=== PATIENT | male | born 1990 | race Caucasian/White ===

== ENCOUNTER 2016-06-27 15:59 | Emergency (ER) | payer OTHER ==
[2016-06-27 16:07] VITALS: PULSE 72; O2SAT 98
[2016-06-27 16:18] VITALS: BP 135/85
--- NOTE | 2016-06-27 16:26 | ERPHSYRPT ---
- History of Present Illness Time Seen by Provider: 06/27/16 16:17 Source: patient Exam Limitations: no limitations Patient Subjective Stated Complaint: PT COMPLAINS OF LEFT SIDE UPPER TOOTH PAIN, EAR PAIN. X 3 DAYS STATES HE HAS CALLED A DENTIST AND CAN'T GET IN FOR 11 DAYS. Triage Nursing Assessment: PT ALERT WARM AND DRY RESP EASY NON LABORED PT AMBULATED TO ROOM WITHOUT DIFFICULTY. Physician History: 25-year-old white male arrives with complaint of pain in the left maxillary molar region symptoms for 3 days. Patient states he also has left ear pain he has no vomiting no diarrhea no fevers. He states he tried to contact a dentist but cannot get in until the of this month. Past medical history is negative. Past surgical history is negative Social history positive for tobacco use Timing/Duration: abrupt onset, days (3 days) ENT Location: ear (L), mouth Prearrival Treatment: no prearrival treatment Modifying Factors: Improves With: activity Associated Symptoms: ear pain (L), facial pain/swelling, jaw pain, tooth pain ( left maxillary molar), No ear pain (R), No cough, No fever, No chills, No change in hearing, No dizziness, No drooling, No ear drainage, No headache, No hearing loss, No malaise, No motion sickness, No nasal congestion/drainage, No epistaxis, No nasal foreign body, No neck pain, No poor fluid intake, No poor solids intake, No ringing of ears, No swollen glands, No sinus infection, No sore throat, No difficulty swallowing, No voice change Allergies/Adverse Reactions: No Known Drug Allergies Allergy (Verified 08/26/15 23:42) Hx Tetanus, Diphtheria Vaccination/Date Given: Yes Hx Influenza Vaccination/Date Given: No Hx Pneumococcal Vaccination/Date Given: No Immunizations Up to Date: Yes - Review of Systems Constitutional: No Fever, No Chills Eyes: No Symptoms Ears, Nose, & Throat: Ear Pain (left ear pain), Other (pain left maxillary molar ), No Ear Discharge, No Hearing Changes, No Tinnitus, No Nose Pain, No Nose Congestion, No Nose Discharge, No Sinus Drainage, No Epistaxis, No Mouth Pain, No Mouth Swelling, No Loose Teeth, No Throat Pain, No Throat Swelling, No Hoarse , No Painful Swallowing, No Snoring, No Stridor Respiratory: No Cough, No Dyspnea Cardiac: No Chest Pain, No Edema, No Syncope Abdominal/Gastrointestinal: No Abdominal Pain, No Nausea, No Vomiting, No Diarrhea Genitourinary Symptoms: No Dysuria Musculoskeletal: No Back Pain, No Neck Pain Skin: No Rash Neurological: No Dizziness, No Focal Weakness, No Sensory Changes Psychological: No Symptoms Endocrine: No Symptoms All Other Systems: Reviewed and Negative - Past Medical History Pertinent Past Medical History: No Psycho-Social History: Depression - Past Surgical History Past Surgical History: No - Social History Smoking Status: Current every day smoker How long have you smoked: 15 YEARS Exposure to second hand smoke: Yes Drug Use: none Patient Lives Alone: No - Nursing Vital Signs Nursing Vital Signs: Initial Vital Signs Temperature 98.9 F Temperature Source Oral Pulse Rate 72 Respiratory Rate 18 Blood Pressure [Right Arm] 135/85 Pain Intensity 10 - Physical Exam General Appearance: mild distress Eye Exam: bilateral eye: normal inspection, PERRL, EOMI Ear Exam: bilateral ear: auricle normal, canal normal, TM normal Nasal Exam: normal inspection, No active bleeding, No discharge, No dried blood , No foreign body, No sinus tenderness Throat Exam: pharynx normal, dental tenderness (tender left maxillary molar), No excessive drooling, No foreign body, No mandibular swelling, No maxillary swelling, No moist mucus membranes, No pharynx swelling, No pharynx tenderness, No tongue swollen, No tonsillar exudate, No tonsillar swelling, No trismus, No uvula swelling Neck Exam: supple Cardiovascular/Respiratory Exam: normal breath sounds, regular rate/rhythm Abdominal Exam: non-tender, soft Neurologic Exam: alert, oriented x 3, sensation nml, No motor deficits Skin Exam: normal color, warm, dry SpO2 Interpretation: normal (98%) SpO2: 98 Oxygen Delivery: Room Air - Course Nursing assessment & vital signs reviewed: Yes - Progress Progress: improved Progress Note: 06/27/16 16:23 25-year-old white male arrives with complaint of pain in the left maxillary molar symptoms for 3 days the pain radiates to his left ear. Patient is tender on the lateral aspect of the face with mild edema corresponding to the left maxillary molar. I do not see obvious caries in the tooth however he is quite tender in the area. Will go ahead and write for [place] and amoxicillin. Patient will need to follow-up with a dentist. - Departure Time of Disposition: 16:24 Departure Disposition: Home Clinical Impression: Pain, dental Condition: Fair Critical Care Time: No Referrals: RODERICK ALONZO [Primary Care Provider] - Instructions: Tooth Decay Additional Instructions: Return home. Cold packs to area 24-48 hours (external only) Avoid excessively hot or cold foods. Amoxicillin 500 mg orally 3 times a day for 10 days. [place] 5/325 #12 one orally every 4-6 hours as needed for pain. Follow-up with your dentist. Return for acute distress or for severe symptoms. Prescriptions: Amoxicillin 500 mg PO TID #30 capsule Hydrocodone/Acetaminophen [[place] 5-325 Tablet] 1 tab PO Q4-6HPRN PRN #12 tablet PRN Reason: Pain
== END 2016-06-27 16:37 | disposition home or self-care (01) ==
LOC: ED 15:59
DX: K08.89 Other specified disorders of teeth and supporting structures (principal); H92.02 Otalgia, left ear
CPT/HCPCS: 99283

== ENCOUNTER 2018-05-26 15:42 | Emergency (ER) | payer MEDICAID, OTHER ==
--- NOTE | 2018-05-26 16:09 | ERPHSYRPT ---
- History of Present Illness Time Seen by Provider: 05/26/18 16:00 Source: patient, family Exam Limitations: no limitations Physician History: 27 y/o white male lifted a shed in his yard 3 days ago and felt a pop and mild pain in right hip. pt was play wrestling last night and aggravated pain in right hip. pt could not get out of bed this morning. pt can move it but hurts. Timing/Duration: day(s) (3) Severity: moderate Modifying Factors: Improves With: movement (worsens), rest (improves) Associated Symptoms: denies symptoms Allergies/Adverse Reactions: No Known Drug Allergies Allergy (Verified 08/26/15 23:42) Hx Tetanus, Diphtheria Vaccination/Date Given: Yes Hx Influenza Vaccination/Date Given: No Hx Pneumococcal Vaccination/Date Given: No - Review of Systems Constitutional: No Symptoms Eyes: No Symptoms Ears, Nose, & Throat: No Symptoms Respiratory: No Symptoms Cardiac: No Symptoms Abdominal/Gastrointestinal: No Symptoms Genitourinary Symptoms: No Symptoms Musculoskeletal: Joint Pain (right hip) Skin: No Symptoms Neurological: No Symptoms Psychological: No Symptoms Endocrine: No Symptoms Hematologic/Lymphatic: No Symptoms Immunological/Allergic: No Symptoms All Other Systems: Reviewed and Negative - Past Medical History Pertinent Past Medical History: No Neurological History: No Pertinent History ENT History: No Pertinent History Cardiac History: No Pertinent History Respiratory History: No Pertinent History Endocrine Medical History: No Pertinent History Musculoskeletal History: No Pertinent History GI Medical History: No Pertinent History History: No Pertinent History Psycho-Social History: Depression - Past Surgical History Past Surgical History: No Neuro Surgical History: No Pertinent History Cardiac: No Pertinent History Respiratory: No Pertinent History Gastrointestinal: No Pertinent History Genitourinary: No Pertinent History Musculoskeletal: No Pertinent History Male Surgical History: No Pertinent History - Social History Smoking Status: Current every day smoker How long have you smoked: 15 YEARS Exposure to second hand smoke: Yes Drug Use: none Patient Lives Alone: No - Nursing Vital Signs Nursing Vital Signs: Initial Vital Signs Temperature 98.3 F 05/26/18 16:03 Pulse Rate 71 05/26/18 16:03 Respiratory Rate 20 05/26/18 16:03 Blood Pressure 154/91 05/26/18 16:03 O2 Sat by Pulse Oximetry 100 05/26/18 16:03 Pain Scale Pain Intensity 9 - Physical Exam General Appearance: no apparent distress, alert, anxiety Eye Exam: PERRL/EOMI, eyes nml inspection Ears, Nose, Throat Exam: normal ENT inspection, moist mucous membranes Neck Exam: normal inspection, non-tender, supple, full range of motion Respiratory Exam: normal breath sounds, lungs clear, airway intact, No chest tenderness, No respiratory distress Cardiovascular Exam: regular rate/rhythm, normal heart sounds, normal peripheral pulses Gastrointestinal/Abdomen Exam: soft, normal bowel sounds, No tenderness, No guarding, No rebound Rectal Exam: not done Back Exam: normal inspection, normal range of motion, No CVA tenderness, No vertebral tenderness Extremity Exam: normal inspection, normal range of motion, pelvis stable, tenderness (right hip with movement) Neurologic Exam: alert, oriented x 3, cooperative, credit review officer II-XII nml as tested Skin Exam: normal color, warm, dry Lymphatic Exam: No adenopathy SpO2 Interpretation: normal O2 Delivery: Room Air - Course Nursing assessment & vital signs reviewed: Yes Ordered Tests: Active Orders 24 hr Category Date Time Status HIP UNI (2V) INCL PEL IF DONE Stat Exams 05/26/18 16:09 Completed Medication Summary Discontinued Medications Generic Name Dose Route Start Last Admin Trade Name Senq PRN Reason Stop Dose Admin Lorazepam 1 mg 05/26/18 16:10 05/26/18 16:56 Ativan 2 Mg/1 Ml Vial IM 05/26/18 16:11 1 mg STAT ONE Administration Lorazepam Confirm 05/26/18 16:50 Ativan 2 Mg/1 Ml Vial Administered 05/26/18 16:51 Dose 2 mg .ROUTE .STK-MED ONE Methylprednisolone Sodium Succinate 125 mg 05/26/18 16:11 05/26/18 16:56 Solu-Medrol 125 Mg IM 05/26/18 16:12 125 mg STAT ONE Administration Methylprednisolone Sodium Succinate Confirm 05/26/18 16:50 Solu-Medrol 125 Mg Administered 05/26/18 16:51 Dose 125 mg .ROUTE .STK-MED ONE - Progress Progress: improved Progress Note: 05/26/18 16:57 xray right hip-no fx or dislocation. Counseled pt/family regarding: diagnosis, need for follow-up, rad results - Departure Departure Disposition: Home Clinical Impression: Hip pain, right Condition: Stable Critical Care Time: No Referrals: RODERICK ALONZO [Primary Care Provider] - Additional Instructions: ice pack to area 3 times daily for 2 days. may add tylenol for pain. follow up with primary doctor for persistent pain. Prescriptions: Carisoprodol 350 mg [Soma 350 mg] 350 mg PO Q8H PRN PRN #10 tablet PRN Reason: Muscle Spasms Prednisone 10 mg [Deltasone 10 mg] 10 mg PO TID #12 tablet
[2018-05-26] MEDS ORDERED: Ativan 2 MG/1 ML VIAL IM ONE (16:10)
[2018-05-26 16:11] VITALS: BP 154/91; PULSE 71; O2SAT 100
[2018-05-26] MEDS ORDERED: solu-MEDROL 125 MG IM ONE (16:11)
--- NOTE | 2018-05-26 16:37 | XRAY ---
Indication: Right hip pain after lifting. Comparison: None 2 views of the right hip demonstrates 6 mm femur neck bone island. No other bony, articular, or soft tissue abnormalities.
[2018-05-26] MEDS ORDERED: Ativan 2 MG/1 ML VIAL ONE (16:50)
[2018-05-26] MEDS ORDERED: solu-MEDROL 125 MG ONE (16:50)
== END 2018-05-26 17:22 | disposition home or self-care (01) ==
LOC: ED 15:42
DX: M25.551 Pain in right hip (principal); F32.9 Major depressive disorder, single episode, unspecified; X50.0XXA Overexertion from strenuous movement or load, initial encounter
CPT/HCPCS: 73502; 96372; 99284; J2060; J2930

== ENCOUNTER 2022-07-13 00:25 | Emergency (ER) | payer OTHER | END 2022-07-13 01:05 | disposition left against medical advice (07) | LOC: ED 00:25 | DX: Z53.21 Procedure and treatment not carried out due to patient leaving prior to being seen by health care provider (principal) ==